=== PATIENT | female | born 1965 | race Caucasian/White ===

== ENCOUNTER 2024-11-18 14:26 | Inpatient (IN) ==
[2024-11-18 16:04] LABS: Hematocrit 24.4 % (35-45); Hemoglobin 8.2 g/dL (11.5-14.3); Mean Corpuscular Hemoglobin 30.5 pg (27-33); Mean Corpuscular Hgb Conc 33.5 g/dL (31-36); Mean Corpuscular Volume 91.1 fL (80-97); Mean Platelet Volume 7.2 fL (7.5-11.2); Platelet Count 388 10^3/uL (150-450); Red Blood Count 2.68 10^6/uL (3.63-4.92); Red Cell Distribution Width 15.8 % (12-17); White Blood Count 12.1 10^3/uL (3.8-11.8)
[2024-11-18] MEDS: Albuterol 2.5mg/3 ml (0.083%) NEB.SOLN INH ONE (16:15)
[2024-11-18 16:27] LABS: Albumin 3.2 g/dL (3.5-5.7); Albumin/Globulin Ratio 1.5 (1-3); C Reactive Protein 74.8 mg/L (<8.01); Calcium 8.9 mg/dL (8.6-10.3); Creatinine, Serum 0.65 mg/dL (0.51-0.95); Globulin 2.2 g/dL (2-4); Potassium 4.1 mmol/L (3.5-5.0); Total Bilirubin 0.3 mg/dL (0.2-1.0); Total Protein 5.4 g/dL (6.4-8.9)
[2024-11-18 16:38] LABS: ABS Basophils 0.1 10^3/uL (0.0-0.1); ABS Lymphocytes 1.1 10^3/uL (1.0-4.8); ABS Monocytes 1.9 10^3/uL (0.0-0.9); ABS Nucleated RBC 0.02 10^3/ul; Eosinophil % 0.1 %; Lymphocyte % 8.7 %; Nucleated Red Blood Cells % 0.2 %/100WBC (0.0-0.8)
[2024-11-18 17:49] LABS: High Sensitivity Troponin 1 Hr 38 pg/mL (<15)
[2024-11-18] MEDS: Iohexol 350 (CONTRAST) 500 ML MDV IV ONE (18:26)
[2024-11-18] MEDS: Furosemide 40 mg/4 ml IV VIAL IV SLOW PU ONE (18:34)
[2024-11-18] MEDS: Nicotine PATCH 21 MG/24 HR PATCH TRANSDERM ONE (19:56)
[2024-11-18] MEDS ORDERED: Sulfur Hexaflouride MICROSPHR 25 MG VIAL IV PRN (21:32)
[2024-11-18] MEDS: cefTRIAXone 1 gm/50 mL D5W 1 GM/50 ML BAG IV SCH (23:18)
[2024-11-19] MEDS: Azithromycin 500 mg/250 ml NS 500 MG/250 ML BAG IVPB SCH (00:01)
[2024-11-19] MEDS: HYDROcodone/ACET. 7.5/325 LIQ 15 ML UDC PO PRN ×2 (06:06→18:11)
[2024-11-19] MEDS: Enoxaparin 40 MG/0.4 ML SYR SUBCUT SCH (06:07)
[2024-11-19 06:53] LABS: Hematocrit 25.7 % (35-45); Hemoglobin 8.9 g/dL (11.5-14.3); Mean Corpuscular Hemoglobin 31.5 pg (27-33); Mean Corpuscular Hgb Conc 34.7 g/dL (31-36); Mean Corpuscular Volume 90.8 fL (80-97); Mean Platelet Volume 7.2 fL (7.5-11.2); Platelet Count 423 10^3/uL (150-450); Red Blood Count 2.83 10^6/uL (3.63-4.92); Red Cell Distribution Width 15.9 % (12-17); White Blood Count 10.7 10^3/uL (3.8-11.8)
[2024-11-19 07:12] LABS: Calcium 8.4 mg/dL (8.6-10.3); Creatinine, Serum 0.7 mg/dL (0.51-0.95); Magnesium 1.4 mg/dL (1.9-2.7); Phosphorus 4.1 mg/dL (2.5-5.0); Potassium 3.9 mmol/L (3.5-5.0); eGFR CKD-EPI 100.2 (>60)
[2024-11-19 08:07] LABS: ABS Basophils 0.1 10^3/uL (0.0-0.1); ABS Lymphocytes 0.8 10^3/uL (1.0-4.8); ABS Monocytes 1.4 10^3/uL (0.0-0.9); ABS Neutrophils 8.4 10^3/uL (1.5-7.6); ABS Nucleated RBC 0.02 10^3/ul; Eosinophil % 0.1 %; Lymphocyte % 7.9 %; Nucleated Red Blood Cells % 0.1 %/100WBC (0.0-0.8); RBC Morphology Normal (Normal)
[2024-11-19] MEDS: Potassium Chlor 20 meq TAB.ER PO ONE (08:08)
[2024-11-19] MEDS: Magnesium Sulf 4 GM/100 ML IV 4,000 MG/100 ML BAG IVPB ONE (08:08)
[2024-11-19] MEDS: Furosemide 40 mg/4 ml IV VIAL IV ONE (08:08)
[2024-11-19] MEDS: Sodium Chloride(INHALANT) 7% 4 ML NEB.SOLN INH ONE (15:28)
[2024-11-19 16:06] LABS: TSH Ultra Thyroid Stim Horm 2.79 mcIU/mL (0.34-5.60)
[2024-11-19 16:08] LABS: Free T3 3.56 pg/mL (2.5-3.9); Free T4 0.85 ng/dL (0.61-1.12)
[2024-11-19 16:13] LABS: Ferritin 487.2 ng/mL (11-307)
[2024-11-19 16:36] LABS: Calcium 9.1 mg/dL (8.6-10.3); Creatinine, Serum 0.89 mg/dL (0.51-0.95); Magnesium 2.5 mg/dL (1.9-2.7); Potassium 4.6 mmol/L (3.5-5.0); eGFR CKD-EPI 75.1 (>60)
[2024-11-19 17:47] LABS: Urine Appearance Clear; Urine Bilirubin Negative (Negative); Urine Blood Negative (Negative); Urine Color Colorless; Urine Glucose Negative (Negative); Urine Ketones Negative (Negative); Urine Nitrite Negative (Negative); Urine Protein Negative (Negative); Urine Specific Gravity 1.009 (1.002-1.030); Urine Urobilinogen Negative (Negative)
[2024-11-19] MEDS: Ferric Gluconate IV 125 MG in NS 0.9% 100 ml BAG 100 ML IVPB ONE (18:12)
[2024-11-20 08:23] LABS: Hematocrit 24.9 % (35-45); Hemoglobin 8.8 g/dL (11.5-14.3); Mean Corpuscular Hemoglobin 31.3 pg (27-33); Mean Corpuscular Hgb Conc 35.2 g/dL (31-36); Mean Corpuscular Volume 88.9 fL (80-97); Mean Platelet Volume 6.9 fL (7.5-11.2); Platelet Count 443 10^3/uL (150-450); White Blood Count 9.6 10^3/uL (3.8-11.8)
[2024-11-20 08:50] LABS: Calcium 8.3 mg/dL (8.6-10.3); Creatinine, Serum 0.73 mg/dL (0.51-0.95); Magnesium 1.7 mg/dL (1.9-2.7); Potassium 4.4 mmol/L (3.5-5.0); eGFR CKD-EPI 95.3 (>60)
[2024-11-20 09:25] LABS: ABS Basophils 0.1 10^3/uL (0.0-0.1); ABS Lymphocytes 0.7 10^3/uL (1.0-4.8); ABS Monocytes 1.2 10^3/uL (0.0-0.9); ABS Neutrophils 7.5 10^3/uL (1.5-7.6); ABS Nucleated RBC 0.01 10^3/ul; Anisocytosis 1+; Eosinophil % 0.2 %; Lymphocyte % 7.4 %; Nucleated Red Blood Cells % 0.1 %/100WBC (0.0-0.8)
[2024-11-20] MEDS: Nicotine PATCH 7 MG/24 HR PATCH TRANSDERM SCH (09:36)
[2024-11-20] MEDS: Magnesium Sulf 4 GM/100 ML IV 4,000 MG/100 ML BAG IVPB ONE (10:03)
[2024-11-20] MEDS: Senna TAB 8.6 mg TAB PO PRN (21:44)
[2024-11-21] MEDS: Lactated Ringers 1000 ml BAG 500 ML IV ONE ×2 (02:17→04:14)
[2024-11-21] MEDS: Lactated Ringers 1000 ml BAG 1,000 ML IV ONE (04:09)
[2024-11-21 04:29] LABS: Hematocrit 23.8 % (35-45); Hemoglobin 8.4 g/dL (11.5-14.3); Mean Corpuscular Hemoglobin 31.9 pg (27-33); Mean Corpuscular Hgb Conc 35.3 g/dL (31-36); Mean Corpuscular Volume 90.3 fL (80-97); Mean Platelet Volume 6.9 fL (7.5-11.2); Platelet Count 458 10^3/uL (150-450); Red Blood Count 2.63 10^6/uL (3.63-4.92); Red Cell Distribution Width 16.5 % (12-17); White Blood Count 7.3 10^3/uL (3.8-11.8)
[2024-11-21 04:53] LABS: ABS Basophils 0.1 10^3/uL (0.0-0.1); ABS Lymphocytes 0.8 10^3/uL (1.0-4.8); ABS Monocytes 1.2 10^3/uL (0.0-0.9); ABS Neutrophils 5.2 10^3/uL (1.5-7.6); Eosinophil % 0.2 %; Nucleated Red Blood Cells % 0.1 %/100WBC (0.0-0.8)
[2024-11-21 05:04] LABS: Calcium 8.5 mg/dL (8.6-10.3); Creatinine, Serum 0.67 mg/dL (0.51-0.95); Magnesium 1.8 mg/dL (1.9-2.7); Potassium 4.1 mmol/L (3.5-5.0); eGFR CKD-EPI 101.2 (>60)
[2024-11-21] MEDS: Magnesium Sulfate 2 gm BAG 2 GM/50 ML BAG IVPB ONE ×2 (06:34→09:25)
[2024-11-21] MEDS ORDERED: Zosyn per Pharmacy NOTE FOLLOW UP SCH (11:00)
[2024-11-21] MEDS: Piperacillin/Tazobac 3.375 BAG 3.375 GM/100 ML BAG IV ONE (12:16)
[2024-11-21 12:28] LABS: C Reactive Protein 43.87 mg/L (<8.01)
[2024-11-21] MEDS: Acetaminophen IV 1 GM/100ML 1,000 MG/100 ML BAG IV PRN (14:45)
[2024-11-21] MEDS: ZOSYN 3.375 GM Q8H per EXTENDED INFUSION IV SCH (16:21)
[2024-11-21] MEDS: HYDROcodone/ACET. 7.5/325 LIQ 15 ML UDC PO PRN (23:46)
[2024-11-22 07:57] LABS: Hematocrit 27.7 % (35-45); Hemoglobin 9.7 g/dL (11.5-14.3); Mean Corpuscular Hemoglobin 31.7 pg (27-33); Mean Corpuscular Volume 90.7 fL (80-97); Mean Platelet Volume 6.7 fL (7.5-11.2); Platelet Count 583 10^3/uL (150-450); Red Blood Count 3.05 10^6/uL (3.63-4.92); Red Cell Distribution Width 16.5 % (12-17); White Blood Count 9.2 10^3/uL (3.8-11.8)
[2024-11-22 08:18] LABS: Calcium 9.1 mg/dL (8.6-10.3); Creatinine, Serum 0.76 mg/dL (0.51-0.95); Magnesium 1.8 mg/dL (1.9-2.7); Potassium 4.1 mmol/L (3.5-5.0); eGFR CKD-EPI 90.8 (>60)
[2024-11-22] MEDS ORDERED: Aminophylline 25 MG/ML VIAL ONE (09:39)
[2024-11-22] MEDS ORDERED: Ondansetron 4 mg VIAL 2 MG/ML 2 ml VIAL ONE (09:39)
[2024-11-22] MEDS ORDERED: Regadenoson 0.4 MG/5 ML SYRINGE ONE (09:40)
[2024-11-22] MEDS: Ondansetron 4 mg VIAL 2 MG/ML 2 ml VIAL IV PRN (09:43)
[2024-11-22] MEDS: Ferric Gluconate IV 250 MG in NS 0.9% 250 ml 200 ML IVPB SCH (21:23)
[2024-11-22] MEDS: Polyethylene Glycol 3350 17 GM PACKET PO PRN (23:13)
[2024-11-23 06:02] LABS: Hematocrit 24.7 % (35-45); Hemoglobin 8.7 g/dL (11.5-14.3); Mean Corpuscular Hemoglobin 32.3 pg (27-33); Mean Corpuscular Hgb Conc 35.2 g/dL (31-36); Mean Corpuscular Volume 91.7 fL (80-97); Mean Platelet Volume 6.8 fL (7.5-11.2); Platelet Count 523 10^3/uL (150-450); Red Blood Count 2.69 10^6/uL (3.63-4.92); Red Cell Distribution Width 16.7 % (12-17); White Blood Count 8.6 10^3/uL (3.8-11.8)
[2024-11-23 06:20] LABS: Calcium 8.5 mg/dL (8.6-10.3); Creatinine, Serum 0.92 mg/dL (0.51-0.95); Magnesium 1.9 mg/dL (1.9-2.7); Potassium 4.5 mmol/L (3.5-5.0); eGFR CKD-EPI 72.2 (>60)
[2024-11-23 06:31] LABS: ABS Basophils 0.1 10^3/uL (0.0-0.1); ABS Lymphocytes 0.8 10^3/uL (1.0-4.8); ABS Monocytes 1.4 10^3/uL (0.0-0.9); ABS Neutrophils 6.3 10^3/uL (1.5-7.6); ABS Nucleated RBC 0.01 10^3/ul; Eosinophil % 0.4 %; Lymphocyte % 9.6 %; Nucleated Red Blood Cells % 0.1 %/100WBC (0.0-0.8)
[2024-11-23 14:16] VITALS: BP 92/58
== END 2024-11-23 16:30 | disposition home or self-care (01) | DRG 133 ==
LOC: ED 14:26 → EDHOLD 14:26 → SUATTDRO 19:06 → MED 20:41
PROVIDERS: ADMIT Student in an Organized Health Care Education/Training Program; ATTEND Internal Medicine